=== PATIENT | female | born 1940 | race Caucasian/White ===

== ENCOUNTER 2017-08-13 13:30 | Emergency (ER) | payer MEDICARE ==
[~2017-08-13] VITALS: Ht 165.1 cm; Wt 60.5 kg
[~2017-08-13 13:30] MED LIST: CALC-729 PO; FLO0.4C PO; HYDR-3965 PO; LEVO50TA8 PO; LOSA25TA96 PO; NIFE30TA95 PO; OMEG500C PO
[2017-08-13 14:49] VITALS: BP 159/71
== END 2017-08-13 14:52 | disposition home or self-care (01) ==
LOC: ER 13:31
DX: S00.93XA Contusion of unspecified part of head, initial encounter (principal); I10 Essential (primary) hypertension; Z98.890 Other specified postprocedural states; Z98.51 Tubal ligation status; Z60.2 Problems related to living alone; Z79.899 Other long term (current) drug therapy; W11.XXXA Fall on and from ladder, initial encounter; Y93.89 Activity, other specified; Y92.89 Other specified places as the place of occurrence of the external cause; Y99.8 Other external cause status
CPT/HCPCS: 70450; 73503; 73590; 99284